=== PATIENT | male | born 1965 | race Caucasian/White ===

== ENCOUNTER → 2019-12-13 15:36 | Outpatient (BNVA) | payer SELFPAY | PROVIDERS: Family Provider Nurse Practitioner; PCP Nurse Practitioner; Visit Provider Nurse Practitioner | DX: I10 Essential (primary) hypertension (principal); K21.9 Gastro-esophageal reflux disease without esophagitis | CPT/HCPCS: 80053 ==

== ENCOUNTER → 2020-01-01 11:17 | Outpatient (BNVA) | payer SELFPAY | PROVIDERS: Family Provider Nurse Practitioner; PCP Nurse Practitioner; Visit Provider Nurse Practitioner | DX: R73.09 Other abnormal glucose (principal) | CPT/HCPCS: 83036 ==

== ENCOUNTER → 2020-04-18 09:08 | Outpatient (BNVA) | payer SELFPAY | PROVIDERS: Family Provider Nurse Practitioner; PCP Nurse Practitioner; Visit Provider Nurse Practitioner | DX: E11.65 Type 2 diabetes mellitus with hyperglycemia (principal); I10 Essential (primary) hypertension | CPT/HCPCS: 80053; 80061; 83036; 84443; 85025 ==

== ENCOUNTER 2020-07-10 09:27 | Emergency (ER) | payer SELFPAY ==
[2020-07-10 09:33] VITALS: BP 120/71; PULSE 94; RESP 18; TEMP 36.7; O2SAT 96; BMI 27.3
--- NOTE | 2020-07-10 09:47 | W.ED.ABDPA2 ---
HPI - Abdominal Pain General: Chief Complaint: Abdominal Pain Stated Complaint: stomach pain/chills Time Seen by Provider: 07/10/20 09:33 Source: patient Mode of arrival: ambulatory Limitations: no limitations History of Present Illness: HPI narrative: 55-year-old male states he has been having generalized body aches chills and some nausea over the last 2 days. Has had mild headaches as well. States has had some abdominal cramping. He states he feels like he has the flu. He has had no known fever and denies any shortness of breath. Patient denies any cough. MD elicited complaint: abdominal pain Associated Symptoms: Reports chills and nausea; Denies diarrhea, dysuria, fever(s) and vomiting Review of Systems Const: Reports: chills and body aches; Denies: fever(s) or change in appetite Eyes: Denies: blurry vision or eye discomfort ENMT: Denies: throat pain or dental pain Card: Denies: chest pain Resp: Denies: dyspnea GI: Reports: nausea; Denies: abdominal pain, vomiting or diarrhea : Denies: dysuria Musc: Denies: neck pain or back pain Skin/Breast: Denies: rash Neuro: Denies: headache(s) Psych: Denies: depression Boogie/Lymph: Denies: easy bruising All/Imm: Denies: urticaria PFSH ED PFSH: Medical History (Updated 07/10/20 @ 13:44 by Karen Raymond MD) Gastric reflux HTN (hypertension) Surgical History History of colon surgery Family History Other Cancer Diabetes Hypertension Social History Smoking and tobacco status: former smoker Alcohol intake: unknown Household members: family Housing: House Marital status: Number of children: 3 Highest education level completed: 10th Grade service: No Current occupational status: employed Pets and animals: Yes History of recent travel: No Physical Exam Const: COMMON NORMALS: no acute distress, patient oriented x3 and healthy appearing HENMT: COMMON NORMALS: normocephalic and atraumatic HEAD & SCALP: normocephalic and atraumatic Eye: COMMON NORMALS: Equal, round and reactive pupils present and EOMs intact bilaterally PUPIL: Yes Equal, round and reactive pupils present Neck/C-Spine: COMMON NORMALS: full ROM and supple Chest: COMMONS NORMALS: normal inspection of the chest and normal palpation of entire chest wall Resp: COMMON NORMALS: normal respiratory effort, No retractions, No use of accessory muscles and clear to auscultation bilaterally AUSCULTATION: clear to auscultation bilaterally Cardio: COMMON NORMALS: regular rate, regular rhythm and No murmurs present (Cardio) RATE: regular rate RHYTHM: regular rhythm GI: COMMON NORMALS: Normal to inspection, nondistended, normoactive bowel sounds present, Soft to palpation, non-tender and no masses PALPATION: Yes Soft to palpation Extremity: COMMON NORMALS: normal to inspection and full ROM Neuro: COMMON NORMALS: patient oriented x3, moves all extremities and no focal motor deficits Psych: COMMON NORMALS: mental status grossly normal, Normal thought process present and cooperative THOUGHT PROCESS: Normal thought process present Skin: COMMON NORMALS: no rashes or lesions noted and no wounds GENERAL SKIN EXAM: no rashes or lesions noted Course Vital Signs: Vital signs: Vital Signs Temperature 98.1 F 07/10/20 09:33 Pulse Rate 84 07/10/20 11:56 Respiratory Rate 18 07/10/20 09:33 Blood Pressure 116/68 07/10/20 13:04 Pulse Oximetry 95 07/10/20 13:04 MDM - Abdominal Pain MDM Narrative: Medical decision making narrative: He presents here with flulike illness along with abdominal pain. He does have a diverticulitis we will start him on Augmentin along with pain meds. We will also test him for Covid and he is to quarantine until test results. We will set him up with outpatient referral for colonoscopy and I did report his CT findings with him. Lab Data: Labs: Lab Results 07/10/20 07/10/20 07/10/20 Range/Units 10:15 10:19 10:19 WBC 16.1 H (4.0-10.0) 10^3/ uL RBC 4.96 (4.1-5.3) 10^6/u L Hgb 14.7 (11.7-16.6) g/dL Hct 44.7 (42.0-52.0) % MCV 90.1 (80-94) fL MCH 29.6 (28.0-34.0) pg MCHC 32.9 (30.0-36.0) g/dL RDW 13.3 (12.1-15.1) % Plt Count 199 (130-400) 10^3/c mm MPV 9.8 (7.4-10.4) fL Neut % (Auto) 94.6 % Lymph % (Auto) 1.3 % [place] % (Auto) 3.6 % Eos % (Auto) 0.0 % Baso % (Auto) 0.2 % Neut # (Auto) 15.18 H (1.8-7.7) 10^3/u L Lymph # (Auto) 0.2 L (0.8-4.8) 10^3/u L [place] # (Auto) 0.6 (0.2-0.9) 10^3/u L Eos # (Auto) 0.0 (0.0-0.8) 10^3/u L Baso # (Auto) 0.0 (0.0-0.1) 10^3/u L Nucleated RBC % (a uto) 0 % Nucleated RBCs # 0.0 /100WBC Sodium 136 (136-145) mmol/L Potassium 4.3 (3.5-5.1) mmol/L Chloride 100 (98-107) mmol/L Carbon Dioxide 23 (22-29) mmol/L Anion Gap 17.3 (5-19) BUN 20 (6-20) mg/dL Creatinine 0.5 L (0.7-1.2) mg/dL GFR Calculation 173.3 H (90-130) mL/min Glucose 121 H (65-115) mg/dL Calculated Osmolal ity 286 (285-295) mOsm/k g Calcium 9.4 (8.5-10.5) mg/dL Total Bilirubin 0.5 (0.15-1.2) mg/dL AST 25 (0-40) U/L ALT 33 (0-41) U/L Alkaline Phosphata se 78 (40-130) IU/L Total Protein 7.1 (6.6-8.7) g/dL Albumin 4.4 (3.5-5.2) g/dL Globulin 2.7 (1.3-4.6) g/dL Lipase 108 H (13-60) U/L Urine Color Yellow (Yellow) Urine Appearance Cloudy (CLEAR) Urine pH 5 (5-7) Ur Specific Gravit y 1.025 (1.005-1.030) Urine Protein Neg (Negative) Urine Glucose (UA) Norm (Normal) Urine Ketones 1+ H (Negative) Urine Blood Neg (Negative) Urine Nitrate Negative (Negative) Urine Bilirubin Neg (Negative) Urine Urobilinogen 1 H (Negative) mg/dL Ur Leukocyte Ritika ase Negative (Negative) Urine RBC 0-4 H (0-2) /hpf Urine WBC 0-4 H (0-5) /hpf Ur Squamous Epith Cells 0-4 H (0-5) /hpf Amorphous Sediment 3+ /hpf Urine Bacteria Trace (NONE) /hpf Influenza Type A A g (Negative) Influenza Type B A g (Negative) 07/10/20 Range/Units 10:29 WBC (4.0-10.0) 10^3/ uL RBC (4.1-5.3) 10^6/u L Hgb (11.7-16.6) g/dL Hct (42.0-52.0) % MCV (80-94) fL MCH (28.0-34.0) pg MCHC (30.0-36.0) g/dL RDW (12.1-15.1) % Plt Count (130-400) 10^3/c mm MPV (7.4-10.4) fL Neut % (Auto) % Lymph % (Auto) % [place] % (Auto) % Eos % (Auto) % Baso % (Auto) % Neut # (Auto) (1.8-7.7) 10^3/u L Lymph # (Auto) (0.8-4.8) 10^3/u L [place] # (Auto) (0.2-0.9) 10^3/u L Eos # (Auto) (0.0-0.8) 10^3/u L Baso # (Auto) (0.0-0.1) 10^3/u L Nucleated RBC % (a uto) % Nucleated RBCs # /100WBC Sodium (136-145) mmol/L Potassium (3.5-5.1) mmol/L Chloride (98-107) mmol/L Carbon Dioxide (22-29) mmol/L Anion Gap (5-19) BUN (6-20) mg/dL Creatinine (0.7-1.2) mg/dL GFR Calculation (90-130) mL/min Glucose (65-115) mg/dL Calculated Osmolal ity (285-295) mOsm/k g Calcium (8.5-10.5) mg/dL Total Bilirubin (0.15-1.2) mg/dL AST (0-40) U/L ALT (0-41) U/L Alkaline Phosphata se (40-130) IU/L Total Protein (6.6-8.7) g/dL Albumin (3.5-5.2) g/dL Globulin (1.3-4.6) g/dL Lipase (13-60) U/L Urine Color (Yellow) Urine Appearance (CLEAR) Urine pH (5-7) Ur Specific Gravit y (1.005-1.030) Urine Protein (Negative) Urine Glucose (UA) (Normal) Urine Ketones (Negative) Urine Blood (Negative) Urine Nitrate (Negative) Urine Bilirubin (Negative) Urine Urobilinogen (Negative) mg/dL Ur Leukocyte Ritika ase (Negative) Urine RBC (0-2) /hpf Urine WBC (0-5) /hpf Ur Squamous Epith Cells (0-5) /hpf Amorphous Sediment /hpf Urine Bacteria (NONE) /hpf Influenza Type A A g Negative (Negative) Influenza Type B A g Negative (Negative) Imaging Data ^: CXR: Radiologist's impression: [address] [address] XRay Report Signed Patient: Emmanuel Fortune Unit #: [id number] : 1965 Age/Sex: 55 / M ADM Date: 07/10/20 Loc: ER Room/Bed: Attending Dr: Ordering Provider/Ordering MD: Karen Raymond MD Date of Service: 07/10/20 Procedure(s): XR chest 1V portable [id number] Accession Number(s): [id number] Report Number: [id number] WS: [id number] Exam: XR chest 1V portable [id number] Date/Time of Exam: 07/10/2020 10:50 AM Reason For Exam: cp Comparison 06/11/2019. The lungs are clear and fully expanded. Heart size is within normal limits. A large hiatal hernia is noted. No pleural effusions. The mediastinum and bony thorax are unremarkable. XR/XR chest 1V portable [id number] IMPRESSION: 1. Large hiatal hernia otherwise negative chest. Discharge Plan Discharge Patient Disposition: Home Clinical Impression: Diverticulitis Condition: Stable Prescriptions: [place] 5-325 mg tablet 1 tab PO Q6H PRN (Reason: pain) Qty: 14 RF: 0 ondansetron 4 mg tablet,disintegrating 4 mg PO Q6H PRN (Reason: nausea and vomiting) Qty: 14 RF: 0 Augmentin 875-125 mg tablet 1 tab PO BID Qty: 14 RF: 0 No Action omega-3 fatty acids [Fish Oil Concentrate] 1,000 mg capsule 1,000 mg PO DAILY RF: 0 metformin 500 mg tablet extended release 24 hr 500 mg PO BID 30 Days Qty: 60 RF: 2 famotidine [Pepcid] 20 mg tablet 20 mg PO DAILY 30 Days Qty: 30 RF: 2 lisinopril 20 mg tablet 20 mg PO DAILY 30 Days Qty: 30 RF: 2 multivitamin Tablet 1 tab PO DAILY RF: 0 Aspir-81 81 mg Tablet,Delayed Release (Dr/Ec) 81 mg PO PRN RF: 0 ferrous sulfate 325 mg (65 mg iron) Tablet 325 mg PO DAILY RF: 0 Stool Softener 100 mg Capsule 100 mg PO DAILY RF: 0 Discharge Orders: Discharge Order (Routine); Ordered 07/10/20 Ordered By: Karen Raymond Referrals: Nicolas Fraire MD [Physician] - 1-3 days John Estevez FNP-C [Primary Care Provider] - Discharge Diet: Advance as tolerated Discharge Activity: Resume usual activity Patient Instructions: Diverticulitis (ED) Coding Level of Care Code 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
[2020-07-10 09:53] VITALS: O2SAT 96
[2020-07-10 10:19] VITALS: BP 108/67; PULSE 88; O2SAT 93
[2020-07-10] MEDS: ondansetron 2 mg/ML SDV 2 mL 4 MG IVP (10:19)
[2020-07-10] MEDS: sodium chloride 0.9% 1,000 ML 999 ML IV (10:33)
[2020-07-10 10:45] LABS: Basophils % 0.2 %; Hematocrit 44.7 % (42.0-52.0); Hemoglobin 14.7 g/dL (11.7-16.6); Lymphocytes # 0.2 10^3/uL (0.8-4.8); Lymphocytes % 1.3 %; Mean Corpuscular HGB Conc 32.9 g/dL (30.0-36.0); Mean Corpuscular Hemoglobin 29.6 pg (28.0-34.0); Mean Corpuscular Volume 90.1 fL (80-94); Mean Platelet Volume 9.8 fL (7.4-10.4); Monocytes # 0.6 10^3/uL (0.2-0.9); Monocytes % 3.6 %; Neutrophils # 15.18 10^3/uL (1.8-7.7); Neutrophils % 94.6 %; Nucleated Red Blood Cells % 0 %; Platelet Count 199 10^3/cmm (130-400); Red Blood Count 4.96 10^6/uL (4.1-5.3); Red Cell Distribution Width 13.3 % (12.1-15.1); White Blood Count 16.1 10^3/uL (4.0-10.0)
--- NOTE | 2020-07-10 10:50 | XR_ITS ---
WS: [id number] Exam: XR chest 1V portable [id number] Date/Time of Exam: 07/10/2020 10:50 AM Reason For Exam: cp Comparison 06/11/2019. The lungs are clear and fully expanded. Heart size is within normal limits. A large hiatal hernia is noted. No pleural effusions. The mediastinum and bony thorax are unremarkable. XR/XR chest 1V portable [id number] IMPRESSION: 1. Large hiatal hernia otherwise negative chest.
[2020-07-10 11:12] LABS: Influenza A by IFA Negative (Negative); Influenza B by IFA Negative (Negative)
[2020-07-10 11:18] LABS: Alanine Aminotransferase 33 U/L (0-41); Albumin Level 4.4 g/dL (3.5-5.2); Alkaline Phosphatase 78 IU/L (40-130); Anion Gap 17.3 (5-19); Aspartate Amino Transferase 25 U/L (0-40); Blood Urea Nitrogen 20 mg/dL (6-20); Calcium 9.4 mg/dL (8.5-10.5); Carbon Dioxide 23 mmol/L (22-29); Chloride 100 mmol/L (98-107); Globulin 2.7 g/dL (1.3-4.6); Glomerular Filtration Rate 173.3 mL/min (90-130); Glucose 121 mg/dL (65-115); Lipase 108 U/L (13-60); Osmolality Calculated 286 mOsm/kg (285-295); Potassium 4.3 mmol/L (3.5-5.1); Sodium 136 mmol/L (136-145); Total Bilirubin 0.5 mg/dL (0.15-1.2); Total Protein 7.1 g/dL (6.6-8.7)
[2020-07-10 11:37] LABS: Glucose Urine UA Norm (Normal); Ketones Urine 1+ (Negative); Protein Urine Neg (Negative); Specific Gravity, Urine 1.025 (1.005-1.030); Urine Appearance Cloudy (CLEAR); Urine Color Yellow (Yellow); pH Urine 5 (5-7)
[2020-07-10 11:38] LABS: Add Urine Microscopic? YES; Bilirubin Urine Neg (Negative); Blood Urine Neg (Negative); Leukocyte Esterase Urine Negative (Negative); Nitrate Urine Negative (Negative); Urobilinogen Urine 1 mg/dL (Negative)
[2020-07-10 11:42] LABS: Add Urine Culture? No; Amorphous Sediment Urine 3+ /hpf; Bacteria Urine TRACE /hpf; RBC Urine 0-4 /hpf (0-2); Squamous Epithelial Cell Urine 0-4 /hpf (0-5); WBC Urine 0-4 /hpf (0-5)
--- NOTE | 2020-07-10 11:45 | CT_ITS ---
WS: [id number] CT ABDOMEN AND PELVIS WITH CONTRAST HISTORY: Transient blood in stool. Diverticulitis. LEFT lower quadrant pain. TECHNIQUE: Imaging performed of the abdomen and pelvis with IV contrast. Single phase imaging of the abdomen. Coronal and sagittal reformats are submitted. All CT scans at [facility] use at least one of these dose optimization techniques: automated exposure control; mA and/or kV adjustment per patient size (includes targeted exams where dose is matched to clinical indication); or iterativ e reconstruction. IV CONTRAST: Omnipaque 300; 95 mL IV. Oral contrast: No DLP: 769.07 mGy.cm COMPARISON: 11/13/2012 Lower thorax: Benign granuloma LEFT lung base. Heart is normal size. There is a large incarcerated hi atal hernia. 50% of the stomach is intrathoracic. Liver/biliary system: Normal size with no intrahepatic dilatation. Gallbladder: Normal. No gallstones or wall thickening. No pericholecystic fluid. Pancreas: Normal. Spleen: Spleen is elongated measuring 14 cm in length. Adrenal glands: Normal. Right kidney: Normal. Left kidney: Normal size kidney with no hydronephrosis. 1.0 cm cortical cyst lower pole. Aorta: Mild atherosclerosis. No aneurysm. Lymphadenopathy: None. Free fluid: None. GI tract: Normal appendix. Extensive diverticular disease throughout the entire colon. Most significa nt burden in the descending and sigmoid colon. There is wall thickening causing moderate luminal narr owing through the sigmoid. There are a few changes of pericolonic stranding suggesting a superimposed mild acute diverticulitis on chronic changes. No free air or free fluid is identified. Abdominal wall: Unremarkable abdominal wall. No hernia. Pelvis: Nondistended urinary bladder. There is mild circumferential bladder wall thickening which is probably due to the nondistention. Bones: Unremarkable. CT/CT abdomen pelvis w con* [id number] IMPRESSION: 1. Severe chronic colon pandiverticulosis. 2. Marked circumferential wall thickening with luminal narrowing and mild troy ges of acute diverticulitis in the sigmoid. No abscess or free fluid. 3. Consider colonoscopy after acute episode resolves to exclude neoplasm along the area of significant circumferential wall thickening in the sigmoid. 4. No free fluid or abscess. 5. Large incarcerated hiatal hernia.
[2020-07-10 11:56] VITALS: BP 105/64; PULSE 84; O2SAT 96
[2020-07-10 13:04] VITALS: BP 116/68; O2SAT 95
[2020-07-10] MEDS: iohexol 300 mg/mL 100 mL Btl IV (13:20)
[2020-07-10 14:00] VITALS: BP 112/68; PULSE 90; O2SAT 95
[2020-07-13 04:17] LABS: Quest SARS-CoV-2 RNA NOT DETECTED (NOT DETECTED)
--- NOTE | 2020-07-15 11:18 | DCPLANNER ---
monitoring manager had message to schedule a follow up appointment for patient with Dr. Fraire. monitoring manager faxed patients information to the office of Dr. Fraire. monitoring manager will call for appointment information.
--- NOTE | 2020-08-19 11:55 | DCPLANNER ---
Patient had a follow up appointment scheduled for 07.28.[address] Fraire - appointment was cancelled.
== END 2020-07-10 14:00 | disposition home or self-care (01) ==
PROVIDERS: Emergency Provider Emergency Medicine; PCP Nurse Practitioner
DX: K57.92 Diverticulitis of intestine, part unspecified, without perforation or abscess without bleeding (principal); Z79.82 Long term (current) use of aspirin; Z79.84 Long term (current) use of oral hypoglycemic drugs; I10 Essential (primary) hypertension; Z87.891 Personal history of nicotine dependence
CPT/HCPCS: 12345; 71045; 74177; 80053; 81001; 83690; 85025; 87635; 87804; 96361; 96374; 96375; 96376; 99283; J2405; J7030; Q9967

== ENCOUNTER → 2020-08-29 11:28 | Outpatient (BNVA) | payer SELFPAY | PROVIDERS: PCP Nurse Practitioner; Visit Provider Nurse Practitioner | DX: K21.9 Gastro-esophageal reflux disease without esophagitis (principal); E11.65 Type 2 diabetes mellitus with hyperglycemia; I10 Essential (primary) hypertension | CPT/HCPCS: 80053 ==

== ENCOUNTER → 2020-09-10 13:34 | Outpatient (BNVA) | payer SELFPAY | PROVIDERS: PCP Nurse Practitioner; Referring Provider Family Medicine; Visit Provider Nurse Practitioner | DX: I10 Essential (primary) hypertension (principal) | CPT/HCPCS: 71046 ==

== ENCOUNTER → 2021-05-12 08:55 | Outpatient (BNVA) | payer SELFPAY | PROVIDERS: PCP Dermatology; Visit Provider Dermatology | DX: Z01.89 Encounter for other specified special examinations (principal) ==

== ENCOUNTER → 2021-08-03 08:43 | Outpatient (BNVA) | payer SELFPAY | PROVIDERS: PCP Dermatology; Visit Provider Nurse Practitioner | DX: E11.65 Type 2 diabetes mellitus with hyperglycemia (principal) | CPT/HCPCS: 80053; 80061; 83036; 85025 ==

== ENCOUNTER → 2022-08-03 09:31 | Outpatient (BNVA) | payer SELFPAY | PROVIDERS: Referring Provider Dermatology; Visit Provider Dermatology | DX: Z01.89 Encounter for other specified special examinations (principal) ==

== ENCOUNTER → 2023-05-03 08:54 | Outpatient (BNVA) | payer SELFPAY | PROVIDERS: PCP Nurse Practitioner; Visit Provider Dermatology | DX: Z01.89 Encounter for other specified special examinations (principal) | CPT/HCPCS: 83721 ==